=== PATIENT | female | born 1990 | race Caucasian/White ===

== ENCOUNTER 2016-10-29 10:19 | Day surgery (SDC) | payer OTHER ==
[~2016-10-29 10:19] MED LIST: IBUPROFEN200 M2; SUDAFED
[2016-10-30] MEDS ORDERED: IBUPROFEN800 M1 PO (01:48)
[2016-10-30] MEDS ORDERED: PERCOCET 5-3251 EACH PO (08:53)
== END 2016-10-30 09:15 ==
LOC: WSU 10:19 → SHSC 10:23 → ORW 12:35 → PACU 14:12 → OBGF 15:40
PROC: 0UT94ZZ Resection of Uterus, Percutaneous Endoscopic Approach (ICD-10-PCS; principal; 2016-10-29)
PROC: 0UTC4ZZ Resection of Cervix, Percutaneous Endoscopic Approach (ICD-10-PCS; 2016-10-29)
PROC: 0UB74ZZ Excision of Bilateral Fallopian Tubes, Percutaneous Endoscopic Approach (ICD-10-PCS; 2016-10-29)
DX: N83.8 Other noninflammatory disorders of ovary, fallopian tube and broad ligament (principal); Z98.51 Tubal ligation status; Z98.890 Other specified postprocedural states; Z91.040 Latex allergy status; Z88.8 Allergy status to other drugs, medicaments and biological substances; Z79.899 Other long term (current) drug therapy
CPT/HCPCS: J1580; J3010; J7030